=== PATIENT | female | born 1990 | race Caucasian/White ===

== ENCOUNTER 2020-12-19 17:48 | Emergency (ER) | payer OTHER | END 2020-12-19 21:08 | disposition home or self-care (01) | LOC: FER 17:48 | DX: S63.502A Unspecified sprain of left wrist, initial encounter (principal); S90.31XA Contusion of right foot, initial encounter; M25.511 Pain in right shoulder; J45.909 Unspecified asthma, uncomplicated; E78.5 Hyperlipidemia, unspecified; Z88.1 Allergy status to other antibiotic agents; Z88.0 Allergy status to penicillin; W19.XXXA Unspecified fall, initial encounter; Y93.41 Activity, dancing | CPT/HCPCS: 73110; 73650 ==

== ENCOUNTER 2021-07-04 16:21 | Emergency (ER) | payer OTHER ==
[2021-07-04 17:57] LABS: BILIRUBIN NEGATIVE (NEGATIVE); BLOOD NEGATIVE Ery/uL (NEGATIVE); CLARITY CLEAR (CLEAR); COLOR YELLOW (YELLOW); GLUCOSE (U) NORMAL (NORMAL); LEUKOCYTES NEGATIVE Leu/uL (NEGATIVE); NITRITE NEGATIVE (NEGATIVE); PROTEIN NEGATIVE (NEGATIVE); SPECIFIC GRAVITY >=1.030 (1.001-1.030); UROBILINOGEN 0.2 mg/dL (0.2-1.0); pH 5.5 (5.0-9.0)
[2021-07-04 18:14] LABS: BASOPHIL 0.4 % (0-2); EOSINOPHIL 2.1 % (0-5); HCT 36.5 % (37.0-47.0); HGB 11.7 g/dl (12.5-16.0); MCH 29.6 pg (25.0-31.0); MCHC 32.1 g/dL (32.0-36.0); MCV 92.4 fL (78.0-100.0); MONOCYTE 8.4 % (0-12); MPV 10.4 fL (6.0-9.5); NEUTROPHIL 65.8 % (41-80); NRBC 0; PLT 309 K/uL (150-400); RBC 3.95 M/uL (4.20-5.40); RDW 13.3 % (11.5-14.0); WBC 9.9 K/uL (4.0-10.5)
[2021-07-04 18:27] LABS: BUN/CREAT RATIO (CALC) 15.6 RATIO; CREATININE 0.9 mg/dL (0.51-0.95); POTASSIUM 3.7 mmol/L (3.5-5.1)
== END 2021-07-04 21:58 | disposition home or self-care (01) ==
LOC: FER 16:21
PROVIDERS: Nurse Practitioner Family
DX: T67.5XXA Heat exhaustion, unspecified, initial encounter (principal); Z20.822 Contact with and (suspected) exposure to COVID-19; Z87.09 Personal history of other diseases of the respiratory system; Z79.899 Other long term (current) drug therapy; X30.XXXA Exposure to excessive natural heat, initial encounter; Y92.69 Other specified industrial and construction area as the place of occurrence of the external cause; Y99.0 Civilian activity done for income or pay
CPT/HCPCS: 36415; 80048; 81003; 85025; 93005; J7030

== ENCOUNTER 2022-05-27 12:28 | Emergency (ER) | payer OTHER ==
[2022-05-27 14:02] LABS: BASOPHIL 0.1 % (0-2); EOSINOPHIL 0.9 % (0-5); HCT 40.3 % (37.0-47.0); HGB 13.6 g/dl (12.5-16.0); LYMPHOCYTE 16.2 % (15-48); MCH 31.3 pg (25.0-31.0); MCHC 33.7 g/dL (32.0-36.0); MCV 92.6 fL (78.0-100.0); MONOCYTE 4.9 % (0-12); MPV 10.5 fL (6.0-9.5); NEUTROPHIL 77.7 % (41-80); NRBC 0; PLT 324 K/uL (150-400); RBC 4.35 M/uL (4.20-5.40); RDW 13.2 % (11.5-14.0); WBC 9.7 K/uL (4.0-10.5)
[2022-05-27 14:23] LABS: ALBUMIN 3.5 g/dL (3.4-5.0); BILIRUBIN - TOTAL 0.3 mg/dL (0.2-1.0); BUN/CREAT RATIO (CALC) 15.2 RATIO; CREATININE 0.79 mg/dL (0.51-0.95); GLOBULIN (CALCULATION) 4.1 g/dL; POTASSIUM 3.9 mmol/L (3.5-5.1); TOTAL PROTEIN 7.6 g/dL (6.4-8.2)
[2022-05-27 16:10] LABS: BILIRUBIN NEGATIVE (NEGATIVE); BLOOD NEGATIVE Ery/uL (NEGATIVE); CLARITY TURBID (CLEAR); COLOR YELLOW (YELLOW); GLUCOSE (U) NORMAL (NORMAL); LEUKOCYTES NEGATIVE Leu/uL (NEGATIVE); NITRITE NEGATIVE (NEGATIVE); PROTEIN NEGATIVE (NEGATIVE); SPECIFIC GRAVITY >=1.030 (1.001-1.030); UROBILINOGEN 0.2 mg/dL (0.2-1.0)
[2022-05-27] MEDS ORDERED: BENTYL10 MG PO (16:22)
[2022-05-27] MEDS ORDERED: ONDANSETRON HCL4 MG PO (16:22)
== END 2022-05-27 16:27 | disposition home or self-care (01) ==
LOC: FER 12:28
PROVIDERS: Nurse Practitioner Family
DX: R10.84 Generalized abdominal pain (principal); R11.2 Nausea with vomiting, unspecified; R19.7 Diarrhea, unspecified; J45.909 Unspecified asthma, uncomplicated; K21.9 Gastro-esophageal reflux disease without esophagitis; F17.200 Nicotine dependence, unspecified, uncomplicated; Z28.310 Unvaccinated for COVID-19; Z88.0 Allergy status to penicillin; Z88.1 Allergy status to other antibiotic agents; Z79.899 Other long term (current) drug therapy
CPT/HCPCS: 36415; 80053; 81003; 85025; J1885; J2405; J7030; Q9967